=== PATIENT | female | born 1945 | race Caucasian/White ===

== ENCOUNTER 2017-08-23 12:28 | Emergency (ER) | payer MEDICARE | END 2017-08-23 13:44 | disposition home or self-care (01) | LOC: EDH 12:28 | DX: H00.11 Chalazion right upper eyelid (principal); I10 Essential (primary) hypertension; I25.10 Atherosclerotic heart disease of native coronary artery without angina pectoris; Z90.710 Acquired absence of both cervix and uterus; Z88.8 Allergy status to other drugs, medicaments and biological substances | CPT/HCPCS: 99281 ==